=== PATIENT | female | born 1965 | race African-American/Black ===

== ENCOUNTER 2023-05-19 06:25 | Observation (INO) | payer BC ==
[2023-05-17 09:24] LABS: BASOPHILS % 0.3 % (0.0-1.0); EOSINOPHILS % 0.7 % (0.0-6.0); HEMOGLOBIN 12.9 g/dL (12.0-16.0); LYMPHOCYTES # (AUTO) 1.4 (1.0-3.2); LYMPHOCYTES % 24.3 % (18.0-39.1); MEAN CORPUSCULAR HEMOGLOBIN 29.1 pg (28-32); MEAN CORPUSCULAR HGB CONC 33.1 g/dL (31-35); MEAN CORPUSCULAR VOLUME 87.8 fL (81-99); MONOCYTES # (AUTO) 0.4 (0.2-0.8); MONOCYTES % 7.4 % (4.4-11.3); NEUTROPHILS # (AUTO) 3.9 (2.1-6.9); NEUTROPHILS % 67.1 % (38.7-80.0); PLATELET COUNT 145 x10e3/uL (140-360); RED BLOOD COUNT 4.44 x10e6/uL (3.6-5.1); RED CELL DISTRIBUTION WIDTH 13.9 % (11.7-14.4)
[2023-05-17 09:40] LABS: ANION GAP 13.7 mmol/L (8-16); CALCIUM 9.9 mg/dL (8.4-10.2); CREATININE, SERUM 1.07 mg/dL (0.57-1.11); POTASSIUM 3.7 mmol/L (3.5-5.1)
[2023-05-17 10:32] LABS: INR 0.92; PROTHROMBIN TIME 12.8 seconds (11.9-14.5)
[2023-05-17 10:33] LABS: PARTIAL THROMBOPLASTIN TIME 31.4 seconds (23.8-35.5)
[~2023-05-19] VITALS: Ht 157.5 cm; Wt 66.7 kg
[~2023-05-19 06:25] MED LIST: LOSARTAN-HCTZ1 EAC2; VENLAFAXINE HCL75 MG PO; [UNRECOGNIZED DRUG - OTHER] PO
[2023-05-19] MEDS ORDERED: SUGAMMADEX SODIUM 200 MG/2 ML VIAL IV ONE (06:30)
[2023-05-19] MEDS ORDERED: ACETAMINOPHEN 1000 MG/100 ML 100 ML IV ONE (06:31)
[2023-05-19] MEDS ORDERED: Vancomycin IV 1 GM VIAL ONE (06:56)
[2023-05-19] MEDS ORDERED: THROMBIN FOR SOLN 5,000 UNIT VIAL ONE (06:56)
[2023-05-19] MEDS ORDERED: LACTATED RINGER'S 1,000 ML ONE (07:40)
[2023-05-19] MEDS ORDERED: CEFAZOLIN SODIUM 2 GM ONE (07:40)
[2023-05-19] MEDS ORDERED: SCOPOLAMINE 1 MG PATCH ONE (09:21)
[2023-05-19] MEDS ORDERED: HYDROCODON-ACE1 EA12 PO (10:43)
[2023-05-19] MEDS ORDERED: ONDANSETRON HCL INJ 2MG/ML 2ML 2 MG/ML VIAL IV PRN (10:45)
[2023-05-19] MEDS ORDERED: MAGNESIUM/ALUMINUM/SIMETHICONE 30 ML UDC PO PRN (10:45)
[2023-05-19] MEDS ORDERED: PROMETHAZINE HCL (IM) 25 MG/ML VIAL IM PRN (10:45)
[2023-05-19] MEDS ORDERED: ACETAMINOPHEN 325 MG TAB PO PRN (10:45)
[2023-05-19] MEDS ORDERED: ZOLPIDEM TARTRATE 5 MG TAB PO PRN (10:45)
[2023-05-19] MEDS ORDERED: HYDROMORPHONE 2MG/ML 2 MG/ML ML IV PRN (10:45)
[2023-05-19] MEDS ORDERED: Morphine 10mg syringe 10 MG/ML INJ IM PRN (10:45)
[2023-05-19] MEDS ORDERED: CEPACOL SORE THROAT LOZENGES PO PRN (10:45)
[2023-05-19] MEDS ORDERED: ONDANSETRON ODT4 MG PO (10:45)
[2023-05-19] MEDS: FENTANYL CITRATE/PF 100MCG/2 ML INJ ONE ×4 (11:00→11:30)
[2023-05-19] MEDS ORDERED: FENTANYL CITRATE/PF 100MCG/2 ML INJ ONE (13:15)
[2023-05-19] MEDS: CARISOPRODOL 350 MG TAB PO PRN (13:25)
[2023-05-19] MEDS ORDERED: LACTATED RINGER'S 1,000 ML IV SCH (13:30)
[2023-05-19 13:34] VITALS: BP 120/84; PULSE 73; RESP 18; TEMP 97.4; O2SAT 99
[2023-05-19] MEDS ORDERED: PROPOFOL IV EMULSION 10 MG/ML 20 ML VIAL ONE (13:38)
[2023-05-19] MEDS ORDERED: SEVOFLURANE INHAL SOLN 250 ML PEN BTL ONE (13:38)
[2023-05-19] MEDS ORDERED: ROCURONIUM BROMIDE 10 MG/ML 5ML VIAL IV ONE (13:38)
[2023-05-19] MEDS ORDERED: POVIDONE IODINE 0.05% 0.05 % ML PO ONE (13:38)
[2023-05-19] MEDS ORDERED: DEXAMETHASONE SOD PHOS INJ 4 MG/ML SDV ONE (13:38)
[2023-05-19] MEDS ORDERED: KETOROLAC TROMETHAMINE 30 MG/ML VIAL ONE (13:38)
[2023-05-19] MEDS ORDERED: ONDANSETRON HCL INJ 2MG/ML 2ML 2 MG/ML VIAL ONE (13:38)
[2023-05-19] MEDS ORDERED: EPHEDRINE SULFATE INJ 50 MG/ML VIAL ONE (13:38)
[2023-05-19] MEDS ORDERED: LIDOCAINE HCL 2% LOCAL INJ 5 ML SDV VIAL INJ ONE (13:38)
[2023-05-19 13:42] VITALS: BP 120/84; PULSE 73; RESP 18; TEMP 97.4; O2SAT 99
[2023-05-19] MEDS: OXYCODONE/ACETAMINOPHEN 5-325 1 EACH TABLET PO PRN ×2 (15:34→21:14)
[2023-05-19 20:00] VITALS: BP 114/78; PULSE 58; RESP 16; TEMP 97.4; O2SAT 99
[2023-05-19 21:00] VITALS: BP 114/78; PULSE 58; RESP 16; TEMP 97.4; O2SAT 99
[2023-05-20 01:17] VITALS: BP 103/65; PULSE 61; RESP 16; TEMP 97.7; O2SAT 99
[2023-05-20 05:28] VITALS: BP 99/63; PULSE 58; RESP 58; TEMP 97.8; O2SAT 100
[2023-05-20] MEDS: LOSARTAN POTASSIUM 100 MG TAB PO SCH ×2 (07:50→07:58)
[2023-05-20 08:00] VITALS: BP 106/70; PULSE 54; RESP 18; TEMP 97.8; O2SAT 99
[2023-05-20] MEDS: CARISOPRODOL 350 MG TAB PO PRN (08:05)
[2023-05-20] MEDS: OXYCODONE/ACETAMINOPHEN 5-325 1 EACH TABLET PO PRN (08:06)
[2023-05-20] MEDS ORDERED: ONDANSETRON HCL 4 MG ORAL DISINTEGRATING TAB PO PRN (08:15)
[2023-05-20 08:41] VITALS: BP 106/70; PULSE 54; RESP 18; TEMP 97.8; O2SAT 99
[2023-05-20] MEDS ORDERED: VENLAFAXINE HCL 75 MG TAB PO SCH (09:00)
== END 2023-05-20 08:56 | disposition home or self-care (01) ==
LOC: OR 06:25 → PACU V 10:37 → MED/SURG 12:31
PROVIDERS: ADMIT Neurological Surgery; ATTEND Neurological Surgery
DX: M47.22 Other spondylosis with radiculopathy, cervical region (principal); M50.121 Cervical disc disorder at C4-C5 level with radiculopathy; I10 Essential (primary) hypertension; Z98.1 Arthrodesis status; Z01.810 Encounter for preprocedural cardiovascular examination; Z01.812 Encounter for preprocedural laboratory examination; Z01.818 Encounter for other preprocedural examination; Z79.899 Other long term (current) drug therapy
CPT/HCPCS: 20931; 22551; 22845; 36415; 71046; 72040; 80048; 85025; 85610; 85730; 86850; 86900; 88304; 88311; 93005; C1713 ×2; G0378 ×2; J0131; J0690 ×2; J1100; J1885; J2001; J2405; J2704; J3010; J3370; J7121; 76000